=== PATIENT | male | born 1940 ===

== ENCOUNTER → 2022-06-11 12:48 | Outpatient (CLI) | payer MEDICARE, SELFPAY ==
--- NOTE | ~2022-06-11 | XR_ITS ---
EXAMINATION:[id number] DATE: 06/11/2022 13:04 INDICATION: Intermittent dizziness TECHNIQUE: AP, lateral, lateral swimmers and odontoid views of the cervical spine are provided. COMPARISON: None FINDINGS: There is reversal of the normal cervical lordosis. There are 2 mm of anterolisthesis of C3 on C4. The odontoid is intact. No fracture is identified. The vertebral body heights are normal. Ther e is severe loss of intervertebral disc space height at C4-5, C5-6, and C6-7. 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 Prevertebral soft tissues are normal. IMPRESSION: 1. Severe cervical spondylosis without acute findings. Reviewed, dictated and finalized at location B. LTY TWISTER TENDER
--- NOTE | ~2022-06-11 | MR_ITS ---
EXAMINATION: MR brain/brain stem wo con DATE: 06/11/2022 14:04 INDICATION: Balance disorder. Memory loss. TECHNIQUE: Magnetic resonance imaging (MRI) of the brain and brainstem was performed without intraven ous contrast. COMPARISON: None. FINDINGS: There is no intracranial hemorrhage, acute infarction, or abnormal intracranial mass lesion . There are scattered areas of nonspecific increased T2-weighted signal intensity in the cerebral whi te matter and brett. The ventricles are normal in size. There is mucosal thickening in the paranasal s inuses. There are likely changes of ocular lens replacement surgeries. The mastoid air cells are norm al. IMPRESSION: 1. 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 Reviewed, dictated and finalized at location A. UET CHEF IMPRESSION: 1. Moderate nonspecific cerebral white matter disease and pontine disease, whic h likely represents chronic small vessel ischemic disease.
--- NOTE | ~2022-06-11 | CT_ITS ---
EXAMINATION: CTA brain carotid DATE: 06/11/2022 14:04 INDICATION: Vertebrobasilar insufficiency. TECHNIQUE: Computed tomographic angiography (CTA) of the head was performed without and with 100 mL O mnipaque-350 intravenous contrast. CTA of the neck was performed with intravenous contrast. Automated exposure control and iterative reconstruction technique were employed. The dose-length product was 1 709.72 mGy-cm. Maximum intensity projection and volume rendered 3D-reconstructions were created by skip rausch technologist on a separate workstation. COMPARISON: Brain MRI 06/11/2022 FINDINGS: HEAD CTA: There are scattered areas of low attenuation in the cerebral white matter and brett. There i s no intracranial hemorrhage, acute infarction, or abnormal intracranial mass lesion. The ventricles are normal in size. There are likely changes of ocular lens replacement surgeries. There is mucosal t hickening in the paranasal sinuses. There is thickening and sclerosis of the [place] of right maxillary sinus, consistent with chronic sinusitis. There is multifocal dental disease. There is an old blowou t fracture of medial wall of left orbit. The mastoid air cells are normal. The vertebral arteries are codominant. There is no significant stenosis of basilar artery or the posterior cerebral arteries. T he posterior communicating arteries are normal. There is no significant stenosis of the intracranial internal carotid arteries or anterior or middle cerebral arteries. Anterior communicating artery is n ormal. There is no aneurysm. NECK CTA: The lungs demonstrate mild atelectasis. There is mild emphysema. There are no pathologicall y enlarged lymph nodes. There is moderate stenosis of proximal right vertebral artery. There is plaqu e in the proximal internal carotid arteries. There is 19% stenosis of the proximal right internal car otid artery relative to normal distal artery lumen diameter (NASCET criteria). There is 0% stenosis o f the proximal left internal carotid artery relative to normal distal artery lumen diameter. There is severe cervical spondylosis. IMPRESSION: 1. 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 9 2. No aneurysm or significant intracranial arterial stenosis. 3. 19% stenosis of the proximal right internal carotid artery relative to normal distal artery lumen diameter (NASCET criteria). 4. 0% stenosis of the proximal left internal carotid artery relative to normal distal artery lumen di ameter. 5. Moderate stenosis of proximal right vertebral artery. Reviewed, dictated and finalized at location A. AD WINDER AUTOMATIC IMPRESSION: 1. Moderate nonspecific cerebral white matter disease and pontine disease, whic h likely represents chronic small vessel ischemic disease. 9 2. No aneurysm or significant intracranial arterial stenosis. 3. 19% stenosis of the proximal right internal carotid artery relative to mamadou l distal artery lumen diameter (NASCET criteria). 4. 0% stenosis of the proximal left internal carotid artery relative to normal distal artery lumen diameter. 5. Moderate stenosis of proximal right vertebral artery.
[2022-06-11 13:18] LABS: Estimated Glomerular Filt Rate 45
== END ==
PROVIDERS: PCP Family Medicine
DX: I65.21 Occlusion and stenosis of right carotid artery (principal); R93.0 Abnormal findings on diagnostic imaging of skull and head, not elsewhere classified; M47.892 Other spondylosis, cervical region
CPT/HCPCS: 70496; 70498; 70551; 72040; Q9967